=== PATIENT | male | born 1965 | race Caucasian/White ===

== ENCOUNTER 2018-09-19 10:33 | Emergency (ER) | payer OTHER ==
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
[2018-09-19] MEDS ORDERED: Tetan/Diph/Pertus SYR(Tdap)* 0.5 ML SYR(BOOSTRIX) use SYR IM ONE (11:28)
[2018-09-19] MEDS ORDERED: Lidocaine 1% w EPI 1:100,000* 30 ML VIAL INJ ONE (13:53)
[2018-09-19] MEDS ORDERED: Lidocaine 2% w/ EPI 1:200,000* 20 ML VIAL ONE (13:55)
[2018-09-19] MEDS ORDERED: Bacitracin OINTMENT* 0.5% 0.5 oz TUBE TOPICAL ONE (14:14)
[2018-09-19] MEDS ORDERED: Cephalexin SUSP* 250 MG/5 ML ORAL.SUSP 100 ML BTL PO ONE (15:23)
[2018-09-19] MEDS ORDERED: Acetaminophen TAB* 325 MG PO ONE (15:31)
[2018-09-19] MEDS ORDERED: Ibuprofen TAB* 600 MG PO ONE (15:32)
[2018-09-19] MEDS ORDERED: Cephalexin CAP* 500 MG PO ONE (15:34)
[2018-09-19 16:04] VITALS: BP 119/67
== END 2018-09-19 16:03 | disposition home or self-care (01) ==
LOC: ED 10:33
DX: S81.011A Laceration without foreign body, right knee, initial encounter (principal); S61.011A Laceration without foreign body of right thumb without damage to nail, initial encounter; S51.011A Laceration without foreign body of right elbow, initial encounter; V18.4XXA Pedal cycle driver injured in noncollision transport accident in traffic accident, initial encounter; Y93.55 Activity, bike riding; Y92.828 Other wilderness area as the place of occurrence of the external cause; Z23 Encounter for immunization
CPT/HCPCS: 12002; 90471; 90715; 96372; 99282; A9270-GY